=== PATIENT | female | born 1975 | race Caucasian/White ===

== ENCOUNTER 2020-07-15 08:33 | Emergency (ER) | payer OTHER ==
--- NOTE | 2020-07-15 09:03 | ED ---
Female Urogenital HPI - General Chief complaint: Vaginal Bleeding Stated complaint: Bleeding Time Seen by Provider: 07/15/20 08:40 Source: patient, RN notes reviewed Mode of arrival: ambulatory Limitations: no limitations - History of Present Illness Initial comments: 45-year-old female presents emergency Department chief complaint of heavy vaginal bleeding. Patient states that has worsened last 3 days. Patient states her last several periods have been heavier with some clotting states that she had large clots last few nights she denies feeling lightheaded, shortness breath, dizziness, fatigue. She has meant that she's had anemia in the past in which she took iron supplements for. Patient states she has no abdominal pain cramping back pain or any flank pain at this time. - Related Data Home Medications Medication Instructions Recorded Confirmed Ibuprofen [Motrin Ib] 400 mg PO Q8H PRN 07/15/20 07/15/20 Phenytoin Sodium Extended 100 mg PO HS 07/15/20 07/15/20 [Dilantin] Phenytoin Sodium Extended 200 mg PO DAILY 07/15/20 07/15/20 [Dilantin] Allergies Allergy/AdvReac Type Severity Reaction Status Date / Time No Known Allergies Allergy Verified 07/15/20 09:20 Review of Systems ROS Statement: Those systems with pertinent positive or pertinent negative responses have been documented in the HPI. ROS Other: All systems not noted in ROS Statement are negative. Past Medical History Past Medical History: Seizure Disorder History of Any Multi-Drug Resistant Organisms: None Reported Past Surgical History: Orthopedic Surgery Additional Past Surgical History / Comment(s): Right foot sx Past Psychological History: No Psychological Hx Reported Smoking Status: Never smoker Past Alcohol Use History: None Reported Past Drug Use History: None Reported General Exam Limitations: no limitations General appearance: alert, in no apparent distress, other (Vitals reviewed, within normal limits.) Head exam: Present: atraumatic, normocephalic, normal inspection Eye exam: Present: normal appearance, PERRL, EOMI. Absent: scleral icterus, conjunctival injection, periorbital swelling ENT exam: Present: normal exam, normal oropharynx, mucous membranes moist Neck exam: Present: normal inspection, full ROM. Absent: tenderness, meningismus, lymphadenopathy Respiratory exam: Present: normal lung sounds bilaterally. Absent: respiratory distress, wheezes, rales, rhonchi, stridor Cardiovascular Exam: Present: regular rate, normal rhythm, normal heart sounds. Absent: systolic murmur, diastolic murmur, rubs, gallop, clicks GI/Abdominal exam: Present: soft, normal bowel sounds. Absent: distended, tenderness, guarding, rebound, rigid Back exam: Absent: CVA tenderness (R), CVA tenderness (L) Neurological exam: Present: alert, oriented X3 Skin exam: Present: warm, dry, intact, normal color. Absent: rash Course Vital Signs 07/15/20 08:35 Temperature 98.4 F Pulse Rate 93 Respiratory 18 Rate Blood Pressure 128/81 O2 Sat by Pulse 100 Oximetry Medical Decision Making - Medical Decision Making Patient presented for dysfunctional uterine bleeding. Patient's labwork is unremarkable. Ultrasound that shows bulky uterus with fibroids. This most likely causing her dysfunctional uterine bleeding, menorrhagia. Patient will follow-up with [employer] return - Lab Data Result diagrams: 07/15/20 09:10 07/15/20 09:10 Lab Results 07/15/20 07/15/20 07/15/20 Range/Units 09:10 09:10 09:10 WBC 6.4 (3.8-10.6) k/uL RBC 4.21 (3.80-5.40) m/uL Hgb 13.4 (11.4-16.0) gm/dL Hct 38.9 (34.0-46.0) % MCV 92.4 (80.0-100.0) fL MCH 31.8 (25.0-35.0) pg MCHC 34.4 (31.0-37.0) g/dL RDW 13.6 (11.5-15.5) % Plt Count 201 (150-450) k/uL MPV 6.7 Neutrophils % 79 % Lymphocytes % 10 % Monocytes % 6 % Eosinophils % 5 % Basophils % 0 % Neutrophils # 5.0 (1.3-7.7) k/uL Lymphocytes # 0.6 L (1.0-4.8) k/uL Monocytes # 0.4 (0-1.0) k/uL Eosinophils # 0.3 (0-0.7) k/uL Basophils # 0.0 (0-0.2) k/uL Sodium (137-145) mmol/L Potassium (3.5-5.1) mmol/L Chloride (98-107) mmol/L Carbon Dioxide (22-30) mmol/L Anion Gap mmol/L BUN (7-17) mg/dL Creatinine (0.52-1.04) mg/dL Est GFR (CKD-EPI)AfAm (>60 ml/min/1.73 sqM) Est GFR (CKD-EPI)NonAf (>60 ml/min/1.73 sqM) Glucose (74-99) mg/dL Calcium (8.4-10.2) mg/dL Total Bilirubin (0.2-1.3) mg/dL AST (14-36) U/L ALT (4-34) U/L Alkaline Phosphatase (38-126) U/L Total Protein (6.3-8.2) g/dL Albumin (3.5-5.0) g/dL Urine Color Yellow Urine Appearance Clear (Clear) Urine pH 6.0 (5.0-8.0) Ur Specific [place] 1.005 (1.001-1.035) Urine Protein 1+ H (Negative) Urine Glucose (UA) Negative (Negative) Urine Ketones Negative (Negative) Urine Blood Large H (Negative) Urine Nitrite Negative (Negative) Urine Bilirubin Negative (Negative) Urine Urobilinogen <2.0 (<2.0) mg/dL Ur Leukocyte Esterase Trace H (Negative) Urine RBC >182 H (0-5) /hpf Urine WBC 6 H (0-5) /hpf Ur Squamous Epith Cells <1 (0-4) /hpf Urine Bacteria Rare H (None) /hpf Urine HCG, Qual Not Detected (Not Detectd) 07/15/20 Range/Units 09:10 WBC (3.8-10.6) k/uL RBC (3.80-5.40) m/uL Hgb (11.4-16.0) gm/dL Hct (34.0-46.0) % MCV (80.0-100.0) fL MCH (25.0-35.0) pg MCHC (31.0-37.0) g/dL RDW (11.5-15.5) % Plt Count (150-450) k/uL MPV Neutrophils % % Lymphocytes % % Monocytes % % Eosinophils % % Basophils % % Neutrophils # (1.3-7.7) k/uL Lymphocytes # (1.0-4.8) k/uL Monocytes # (0-1.0) k/uL Eosinophils # (0-0.7) k/uL Basophils # (0-0.2) k/uL Sodium 141 (137-145) mmol/L Potassium 4.7 (3.5-5.1) mmol/L Chloride 107 (98-107) mmol/L Carbon Dioxide 29 (22-30) mmol/L Anion Gap 5 mmol/L BUN 11 (7-17) mg/dL Creatinine 0.61 (0.52-1.04) mg/dL Est GFR (CKD-EPI)AfAm >90 (>60 ml/min/1.73 sqM) Est GFR (CKD-EPI)NonAf >90 (>60 ml/min/1.73 sqM) Glucose 108 H (74-99) mg/dL Calcium 9.2 (8.4-10.2) mg/dL Total Bilirubin 0.4 (0.2-1.3) mg/dL AST 20 (14-36) U/L ALT 12 (4-34) U/L Alkaline Phosphatase 132 H (38-126) U/L Total Protein 7.2 (6.3-8.2) g/dL Albumin 4.1 (3.5-5.0) g/dL Urine Color Urine Appearance (Clear) Urine pH (5.0-8.0) Ur Specific [place] (1.001-1.035) Urine Protein (Negative) Urine Glucose (UA) (Negative) Urine Ketones (Negative) Urine Blood (Negative) Urine Nitrite (Negative) Urine Bilirubin (Negative) Urine Urobilinogen (<2.0) mg/dL Ur Leukocyte Esterase (Negative) Urine RBC (0-5) /hpf Urine WBC (0-5) /hpf Ur Squamous Epith Cells (0-4) /hpf Urine Bacteria (None) /hpf Urine HCG, Qual (Not Detectd) Disposition Clinical Impression: Dysfunctional uterine bleeding, Menorrhagia, Uterine fibroid Disposition: HOME SELF-CARE Condition: Stable Instructions (If sedation given, give patient instructions): Dysfunctional Uterine Bleeding (ED) Additional Instructions: Please return to the Emergency Department if symptoms worsen or any other concerns. Is patient prescribed a controlled substance at d/c from ED?: No Referrals: Haseeb Gomes MD [Primary Care Provider] - 1-2 days Haris Morales DO [Doctor of Osteopathic Medicine] - 1-2 days Time of Disposition: 10:18
[2020-07-15 09:25] LABS: Basophils % (A) 0 %; Eosinophils # (A) 0.3 k/uL (0-0.7); Eosinophils % (A) 5 %; HCT 38.9 % (34.0-46.0); HGB 13.4 gm/dL (11.4-16.0); Lymphocytes # (A) 0.6 k/uL (1.0-4.8); Lymphocytes % (A) 10 %; MCH 31.8 pg (25.0-35.0); MCHC 34.4 g/dL (31.0-37.0); MCV 92.4 fL (80.0-100.0); Mean Platelet Volume 6.7; Monocytes # (A) 0.4 k/uL (0-1.0); Monocytes % (A) 6 %; Neutrophils % (A) 79 %; Platelet Count 201 k/uL (150-450); RBC 4.21 m/uL (3.80-5.40); RDW 13.6 % (11.5-15.5); WBC 6.4 k/uL (3.8-10.6)
[2020-07-15 09:40] LABS: ALT 12 U/L (4-34); AST 20 U/L (14-36); African American GFR (CKD) >90 (>60 ml/min/1.73 sqM); Albumin 4.1 g/dL (3.5-5.0); Alkaline Phosphatase 132 U/L (38-126); Anion Gap 5 mmol/L; Blood Urea Nitrogen 11 mg/dL (7-17); Calcium 9.2 mg/dL (8.4-10.2); Carbon Dioxide 29 mmol/L (22-30); Chloride 107 mmol/L (98-107); Glucose 108 mg/dL (74-99); Non-African American GFR(CKD) >90 (>60 ml/min/1.73 sqM); Potassium 4.7 mmol/L (3.5-5.1); Sodium 141 mmol/L (137-145); Total Bilirubin 0.4 mg/dL (0.2-1.3); Total Protein 7.2 g/dL (6.3-8.2)
[2020-07-15 09:52] LABS: Appearance,Urine Clear (Clear); Bacteria,Urine Rare /hpf; Bilirubin,Urine Negative (Negative); Blood,Urine Large (Negative); Color,Urine Yellow; Glucose,Urine (UA) Negative (Negative); Ketones,Urine Negative (Negative); Leukocyte Esterase,Urine Trace (Negative); Nitrite,Urine Negative (Negative); Protein,Urine 1+ (Negative); RBC,Urine >182 /hpf (0-5); Specific Gravity,Urine 1.005 (1.001-1.035); Squamous Epithelial Cell,Urine <1 /hpf (0-4); Urobilinogen,Urine <2.0 mg/dL (<2.0); WBC,Urine 6 /hpf (0-5)
--- NOTE | 2020-07-15 10:10 | US ---
EXAMINATION TYPE: US transvaginal plus Doppler DATE OF EXAM: 07/15/2020 COMPARISON: NONE CLINICAL HISTORY: 45-year-old female heavy bleeding, spotting between cycles for 1 year. TECHNIQUE: Transvaginal (TV). Color Doppler and spectral waveform analysis of the ovarian arteries and veins. Date of LMP: unknown FINDINGS: EXAM MEASUREMENTS: Uterus: 13.7 x 5.9 x 6.7 cm Endometrial Stripe: 2.2 cm Right Ovary: 2.6 x 2.0 x 1.6 cm Left Ovary: 4.4 x 2.9 x 2.4 cm for a volume of 15.3 mL 1. Uterus: Retroverted , bulky at 13.7 cm, fibroid left fundal measures 1.6 x 2.9 x 2.0 cm. Cervical nabothian cyst measuring up to 1.0 cm. 2. Endometrium: thickened and irregular 3. Right Ovary: wnl 4. Left Ovary: There is prominent follicular change with a dominant follicle/functional cyst measuri ng 2.4 x 2.3 x 2.5 cm. Spectral, color and waveform doppler imaging shows good arterial and venous flow within the ovaries ; there is no evidence for ovarian torsion. 5. Bilateral Adnexa: wnl 6. Posterior cul-de-sac: no free fluid IMPRESSION: 1. Excessively thickened and heterogeneous endometrial stripe measuring up to 2.2 cm. Endometrial hyp erplasia, polyps, and endometrial carcinoma are in the differential. 2. Prominent follicular change in the left ovary with a 2.5 cm dominant follicle/functional cyst. 3. No sonographic evidence for ovarian torsion. 4. A 2.9 cm left fundal intramural fibroid.
[2020-07-15 10:41] VITALS: BP 120/82; PULSE 85; RESP 16; TEMP 97.6
== END 2020-07-15 10:41 | disposition home or self-care (01) ==
LOC: EC 08:33
DX: D25.1 Intramural leiomyoma of uterus (principal); G40.909 Epilepsy, unspecified, not intractable, without status epilepticus; Z79.899 Other long term (current) drug therapy
CPT/HCPCS: 36415; 76830; 80053; 81001; 81025; 85025; 93975; 99284

== ENCOUNTER 2020-07-22 10:52 | Day surgery (SDC) | payer OTHER ==
[~2020-07-22 10:52] MED LIST: Pre Op ABX Message 1 EACH MISC MISCELLANE ONE
[2020-07-22 11:18] VITALS: RESP 16
[2020-07-22] MEDS ORDERED: LACTATED RINGERS 1,000 ML IV ONE (11:38)
[2020-07-22] MEDS ORDERED: ONDANSETRON 4 MG/2 ML VIAL ONE (11:40)
[2020-07-22] MEDS ORDERED: ONDANSETRON 4 MG/2 ML VIAL IVP ONE (11:41)
[2020-07-22] MEDS ORDERED: fentaNYL (PF) 50 MCG/ML 2 ML AMP ONE (12:51)
[2020-07-22] MEDS ORDERED: MIDAZOLAM 2 MG/2 ML VIAL ONE (12:51)
[2020-07-22] MEDS ORDERED: PROPOFOL 10 MG/ML 20 ML VIAL IV ONE (12:51)
--- NOTE | 2020-07-22 13:26 | P.OP ---
Date of Procedure: 07/22/20 Preoperative Diagnosis: Menorrhagia with symptomatic anemia, thickened endometrium Postoperative Diagnosis: Same Procedure(s) Performed: D&C with hysteroscopy Anesthesia: CECILY Surgeon: Haris Morales Estimated Blood Loss (ml): 8 Pathology: other (Uterine curettings) Condition: stable Disposition: same day Operative Findings: Pelvic exam reveals grossly enlarged uterus slightly tipped to the right side no other abnormal lesions are noted initially Description of Procedure: Patient states the operating suite where general anesthetic was found be adequate. She was prepped and draped in the normal sterile fashion and placed in dorsal lithotomy position. Initially a weighted speculum was inserted into the vagina and the anterior lip of the cervix was identified and grasped with an Allis clamp. Cervix was then dilated. Camera was inserted with significant tissue noted questionable degenerating polyp or fibroid but limited visualization could be seen with the hysteroscope. Camera was then removed and sharp curettings of the endometrial retained. Significant quantity of endometrial tissue was removed and sent to pathology for evaluation until pathologies returned is unclear what the next treatment step will be. Once completed all instruments were removed. Sponge, lap, needle counts were all correct 2. Patient was then taken to the recovery room in stable and satisfactory condition. Plan - Discharge Summary New Discharge Prescriptions: New Ibuprofen [Motrin] 600 mg PO Q6HR PRN #30 tab PRN Reason: Pain No Action Phenytoin Sodium Extended [Dilantin] 200 mg PO DAILY Phenytoin Sodium Extended [Dilantin] 100 mg PO HS Ibuprofen [Motrin Ib] 400 mg PO Q8H PRN PRN Reason: Pain Aspirin 81 mg PO DAILY Discharge Medication List Ibuprofen [Motrin Ib] 400 mg PO Q8H PRN 07/15/20 [History] Phenytoin Sodium Extended [Dilantin] 100 mg PO HS 07/15/20 [History] Phenytoin Sodium Extended [Dilantin] 200 mg PO DAILY 07/15/20 [History] Aspirin 81 mg PO DAILY 07/22/20 [History] Ibuprofen [Motrin] 600 mg PO Q6HR PRN #30 tab 07/22/20 [Rx] Follow up Appointment(s)/Referral(s): Haris Morales DO [Doctor of Osteopathic Medicine] - 07/26/20 Activity/Diet/Wound Care/Special Instructions: Limit driving. Pelvic rest. Call for heavy bleeding severe pain or high temperatures
[2020-07-22 13:36] VITALS: TEMP 97.2
[2020-07-22] MEDS ORDERED: SODIUM CHLORIDE 0.9% 1,000 ML IV ONE ×2 (13:53)
[2020-07-22 14:15] VITALS: BP 114/74; PULSE 94
[2020-07-22 14:23] LABS: Anisocytosis Slight; Basophils % (A) 0 %; Eosinophils # (A) 0.2 k/uL (0-0.7); Eosinophils % (A) 4 %; HCT 21.3 % (34.0-46.0); Hypochromasia Moderate; Lymphocytes % (A) 21 %; MCH 32.7 pg (25.0-35.0); MCHC 33.2 g/dL (31.0-37.0); Macrocytosis Slight; Mean Platelet Volume 6.7; Monocytes # (A) 0.3 k/uL (0-1.0); Monocytes % (A) 6 %; Neutrophils # (A) 3.1 k/uL (1.3-7.7); Neutrophils % (A) 68 %; Platelet Count 229 k/uL (150-450); Poikilocytosis Slight; RBC 2.16 m/uL (3.80-5.40); RDW 16.2 % (11.5-15.5); WBC 4.6 k/uL (3.8-10.6)
[2020-07-22 14:27] LABS: HGB 7.1 gm/dL (11.4-16.0); MCV 98.6 fL (80.0-100.0)
--- NOTE | 2020-07-22 18:28 | PN ---
PROGRESS NOTE The patient is seen and evaluated this afternoon following D and C. She was seen in the recovery room. She was alert and oriented x3 and understood all questions and issues that were brought forth. I did relate that her hemoglobin was consistent with our office hemoglobin and was somewhere between 6 and 7. I offered blood products and related that she would probably feel better if she got them. She declined. She has had blood in the past and did not like it. She relates that in the past her hemoglobin has been as low as 5 and she did not receive blood products at that time. She is advised to take iron. She is aware she needs to report to the emergency room for any heavy bleeding this weekend due to the fact that her hemoglobin is already very low. She understands and agrees to same. She will follow up with me in the next few days for pathology review and discussion of future treatment options. All other questions were answered for her at this time. Again, she declines blood products at this time. MMODL / IJN: [id number] /
[2020-07-23 02:21] LABS: Follicle Stimulating Hormone 12.6 mIU/mL; Luteinizing Hormone 9.9 mIU/mL
[2020-07-23 02:22] LABS: Estradiol 261.7 pg/mL
== END 2020-07-22 15:03 | disposition home or self-care (01) ==
LOC: OR 10:52
PROVIDERS: ATTEND Obstetrics & Gynecology
DX: C54.1 Malignant neoplasm of endometrium (principal); N92.0 Excessive and frequent menstruation with regular cycle; D64.9 Anemia, unspecified; R56.9 Unspecified convulsions; Z98.890 Other specified postprocedural states; Z80.0 Family history of malignant neoplasm of digestive organs; Z80.49 Family history of malignant neoplasm of other genital organs
CPT/HCPCS: 81025; 86900; 86901; 88305; 84443; 83001; 83002; 82670; 85025; 86850; 58558; J2250; J2405; J3010; J2704

== ENCOUNTER → 2020-07-29 | Outpatient (CLI) | payer OTHER ==
--- NOTE | 2020-07-30 04:19 | CT ---
EXAMINATION TYPE: CT abdomen pelvis wo con DATE OF EXAM: 07/29/2020 COMPARISON: HISTORY: Endometrial adenocarcinoma. Pt recently had DNC procedure. Oral contrast only. No IV contras t due to multiple attemps by CT staff to obtain IV. BOBBIN DUMPER also called down to attempt IV and was unsuc cessful. Dr. Martinez, diabetes solutions specialist for Dr. Morales, asked we consult radiologist. Dr. Foote advised if pat ient scheduled for PET scan, to not proceed on a without study. If patient not scheduled, to proceed. Pt not scheduled for PET scan at this time; Dr. Martinez said to proceed. CT DLP: 267.20 mGycm Automated exposure control for dose reduction was used. Images were obtained from the diaphragm to the floor the pelvis with oral contrast only. The lung bases are clear of consolidation. There is no pleural effusion. Heart size is normal. There is no pericardial effusion. Liver spleen pancreas appear normal. Bile ducts are not dilated. There is no adrenal mass. Kidneys have normal size. There is no hydronephrosis. Ureters are not dilat ed. There is no sign of retroperitoneal adenopathy. Bladder distends smoothly. There is no inguinal h ernia. There is no free fluid in the pelvis. Uterus is retroverted. There is no evidence of a pelvic mass. The lumbar vertebra have normal spacing and alignment. Posterior elements are intact. Bony pelvis is intact. Hip joints appear normal. There is no evidence of hip dysplasia. There is no mesenteric edema. There is no ascites or free air. There is no bowel obstruction. Appendi x is filled with contrast and appears normal. IMPRESSION: Negative CT scan of the abdomen and pelvis. Normal appendix. No evidence of metastatic disease in thi s patient with a history of uterine cancer.
--- NOTE | 2020-07-30 10:36 | XR ---
EXAMINATION TYPE: XR chest 2V DATE OF EXAM: 07/29/2020 COMPARISON: NONE HISTORY: C 54.1 TECHNIQUE: Frontal and lateral views of the chest are obtained. FINDINGS: There is no focal air space opacity, pleural effusion, or pneumothorax seen. The cardiac silhouette size is within normal limits. The osseous structures are intact. IMPRESSION: No acute cardiopulmonary process.
== END | disposition home or self-care (01) ==
LOC: RADCTMAIN 16:01
PROVIDERS: ATTEND Obstetrics & Gynecology
DX: C54.1 Malignant neoplasm of endometrium (principal)
CPT/HCPCS: 71046; 74176

== ENCOUNTER 2021-04-06 08:38 | Day surgery (SDC) | payer OTHER ==
[2021-04-03 15:30] VITALS: BMI 20.2
[~2021-04-06 08:38] MED LIST changes: +LACTATED RINGERS 1,000 ML IV SCH; -Pre Op ABX Message 1 EACH MISC MISCELLANE ONE
[2021-04-06] MEDS ORDERED: LIDOCAINE 1% (10MG/ML) FOR IV START INTRADERMA ONE (09:14)
[2021-04-06] MEDS ORDERED: LIDOCAINE 1% INJ 10MG/ML (20 ML MDV) ONE (10:14)
[2021-04-06] MEDS ORDERED: PROPOFOL 10 MG/ML 20 ML VIAL IV ONE (10:14)
--- NOTE | 2021-04-06 10:17 | P.GSHP ---
History of Present Illness H&P Date: 04/06/21 Chief Complaint: GERD, screening colonoscopy This a 46-year-old female presents today for EGD and screening colonoscopy. Patient presents history of endometrial cancer. She's had some mild GERD symptoms. Past Medical History Past Medical History: Seizure Disorder Additional Past Medical History / Comment(s): LAST SEIZURE 20 YEARS AGO. History of Any Multi-Drug Resistant Organisms: None Reported Past Surgical History: Hysterectomy, Orthopedic Surgery Additional Past Surgical History / Comment(s): Right foot sx Past Anesthesia/Blood Transfusion Reactions: No Reported Reaction Smoking Status: Never smoker - Past Family History Mother Family Medical History: Cancer Medications and Allergies Home Medications Medication Instructions Recorded Confirmed Type Ibuprofen [Motrin Ib] 400 mg PO QAM PRN 07/15/20 04/03/21 History Phenytoin Sodium Extended 100 mg PO HS 07/15/20 04/06/21 History [Dilantin] Phenytoin Sodium Extended 200 mg PO DAILY 07/15/20 04/06/21 History [Dilantin] Ibuprofen 600 mg PO HS PRN 04/03/21 04/03/21 History Allergies Allergy/AdvReac Type Severity Reaction Status Date / Time No Known Allergies Allergy Verified 04/03/21 15:21 Surgical - Exam - General well developed, well nourished, no distress - Eyes PERRL - ENT normal pinna - Neck no masses - Respiratory normal expansion - Cardiovascular Rhythm: regular - Abdomen Abdomen: soft, non tender Assessment and Plan Assessment: GERD. We'll perform EGD. We'll also perform screening colonoscopy.
--- NOTE | 2021-04-06 10:36 | P.OP ---
Date of Procedure: 04/06/21 Preoperative Diagnosis: GERD Screening colonoscopy Postoperative Diagnosis: Mild antral gastritis Mild diverticulosis Procedure(s) Performed: EGD Colonoscopy Anesthesia: MAC Surgeon: Reagan Flores Pathology: other (Antrum) Condition: stable Disposition: PACU Description of Procedure: The patient's placed on the endoscopy table in the lateral position. She received IV sedation. Digital rectal exam performed which revealed no abnormalities. Flexible colonoscope was then placed patient anus passed throughout the entire colon. The ileocecal valve was visualized. The cecum, ascending and transverse colon appeared normal. The descending and sigmoid colon appeared to have mild diverticular changes. Scope was then brought back the rectum and this appeared normal. Scope was withdrawn for patient. Next the gastroscope placed oropharynx passed in the esophagus into the stomach. Scope some placed through the pylorus. The first and second portion of duodenum appeared normal. Scope was then brought back the antrum this. Mildly inflamed. A biopsies performed. Scope was then retroflexed and the remainder of the stomach appeared normal. The GE junction was at 40 cm. The distal esophagus appeared normal. The proximal esophagus appeared normal. Scope was withdrawn for patient.
[2021-04-06 10:37] VITALS: RESP 16
[2021-04-06] MEDS ORDERED: LABETALOL 5 MG/ML VIAL MDV IVP ONE ×3 (11:20→11:51)
[2021-04-06 12:06] VITALS: BP 138/90; PULSE 80
== END 2021-04-06 12:14 | disposition home or self-care (01) ==
LOC: ORWHC2ENDO 08:38
PROVIDERS: ATTEND Surgery
DX: Z12.11 Encounter for screening for malignant neoplasm of colon (principal); K57.30 Diverticulosis of large intestine without perforation or abscess without bleeding; K29.50 Unspecified chronic gastritis without bleeding; G40.909 Epilepsy, unspecified, not intractable, without status epilepticus; Z85.42 Personal history of malignant neoplasm of other parts of uterus; Z79.899 Other long term (current) drug therapy
CPT/HCPCS: 88305; 43239; J2001; J2704; G0121; 45378

== ENCOUNTER 2022-05-17 09:38 | Day surgery (SDC) | payer OTHER ==
[2022-05-16 10:35] VITALS: BMI 19.4
[2022-05-17] MEDS ORDERED: LACTATED RINGERS 1,000 ML IV ONE (10:24)
[2022-05-17 10:43] VITALS: TEMP 97.1
[2022-05-17] MEDS ORDERED: PROPOFOL 10 MG/ML 20 ML VIAL IV ONE (11:06)
--- NOTE | 2022-05-17 11:08 | P.GSHP ---
History of Present Illness H&P Date: 05/17/22 Chief Complaint: Screening colonoscopy, history of endometrial cancer Is a 39-year-old female presents today for colonoscopy. Patient appears history of endometrial cancer. She's had of diverticulosis her last colonoscopy Past Medical History Past Medical History: Cancer, Seizure Disorder Additional Past Medical History / Comment(s): LAST SEIZURE 20 YEARS AGO. UTERINE CANCER History of Any Multi-Drug Resistant Organisms: None Reported Past Surgical History: Hysterectomy, Orthopedic Surgery Additional Past Surgical History / Comment(s): Right foot sx Past Anesthesia/Blood Transfusion Reactions: No Reported Reaction Smoking Status: Never smoker - Past Family History Mother Family Medical History: Cancer Medications and Allergies Home Medications Medication Instructions Recorded Confirmed Type Ibuprofen [Motrin Ib] 400 mg PO QAM PRN 07/15/20 05/16/22 History Phenytoin Sodium Extended 100 mg PO HS 07/15/20 05/16/22 History [Dilantin] Phenytoin Sodium Extended 200 mg PO DAILY 07/15/20 05/16/22 History [Dilantin] Ibuprofen 600 mg PO HS PRN 04/03/21 05/16/22 History Allergies Allergy/AdvReac Type Severity Reaction Status Date / Time Penicillins Allergy Rash/Hives Verified 05/17/22 10:49 Surgical - Exam Vital Signs Temp Pulse Resp BP Pulse Ox 97.1 F L 78 18 134/91 94 L 05/17/22 10:27 05/17/22 10:27 05/17/22 10:27 05/17/22 10:27 05/17/22 10:27 - General well developed, well nourished, no distress - Eyes PERRL - ENT normal pinna - Neck no masses - Respiratory normal expansion - Cardiovascular Rhythm: regular - Abdomen Abdomen: soft, non tender Assessment and Plan Assessment: History of diverticulosis History of initial cancer. We'll perform colonoscopy
--- NOTE | 2022-05-17 11:22 | P.OP ---
Date of Procedure: 05/17/22 Preoperative Diagnosis: History of endometrial cancer Postoperative Diagnosis: Tortuous colon Procedure(s) Performed: Colonoscopy Anesthesia: MAC Surgeon: Reagan Flores Pathology: none sent Condition: stable Disposition: PACU Description of Procedure: The patient's placed on the endoscopy table in the lateral position. She received IV sedation. Digital rectal exam was performed which revealed no abnormalities. The flexible colonoscope was then placed patient anus and passed throughout the entire colon. The colon was very tortuous. The pediatric scope was used to do the colonoscopy. The ileocecal valve sutures. The cecum, ascending transverse and descending colon appeared normal. The sigmoid colon appeared normal. The colon was very tortuous or. Scope was withdrawn for patient.
[2022-05-17 11:40] VITALS: BP 148/98; PULSE 84; RESP 15
== END 2022-05-17 12:20 | disposition home or self-care (01) ==
LOC: ORWHC2ENDO 09:38
PROVIDERS: ATTEND Surgery
DX: C54.1 Malignant neoplasm of endometrium (principal); G40.909 Epilepsy, unspecified, not intractable, without status epilepticus; Z85.42 Personal history of malignant neoplasm of other parts of uterus; Z90.710 Acquired absence of both cervix and uterus; Z79.1 Long term (current) use of non-steroidal anti-inflammatories (NSAID); Z79.899 Other long term (current) drug therapy; Z88.0 Allergy status to penicillin
CPT/HCPCS: 45378; J2704

== ENCOUNTER 2023-04-18 09:18 | Day surgery (SDC) | payer OTHER ==
[2023-04-16 10:01] VITALS: BMI 19.5
[~2023-04-18 09:18] MED LIST changes: +LIDOCAINE 1% (10MG/ML) FOR IV START INTRADERMA PRN
[2023-04-18] MEDS ORDERED: LACTATED RINGERS 1,000 ML IV ONE (10:29)
[2023-04-18 10:36] VITALS: TEMP 97
[2023-04-18] MEDS ORDERED: PROPOFOL 10 MG/ML 20 ML VIAL IV ONE (11:08)
--- NOTE | 2023-04-18 11:38 | P.OP ---
Date of Procedure: 04/18/23 Preoperative Diagnosis: Screening colonoscopy Postoperative Diagnosis: Normal colon Procedure(s) Performed: Colonoscopy Anesthesia: MAC Surgeon: Reagan Flores Pathology: none sent Condition: stable Disposition: PACU Description of Procedure: The patient's placed on the endoscopy table in the lateral position. She received IV sedation. Digital rectal performed. This revealed no abnormalities. Flexible colonoscope was then placed patient anus and passed throughout the entire colon. The ileocecal valve was visualized. The cecum, ascending and transverse colon appeared normal. Descending and sigmoid colon appeared normal. Copious then brought back the rectum and this was normal. Scope was withdrawn from patient.
--- NOTE | 2023-04-18 11:39 | P.GSHP ---
History of Present Illness H&P Date: 04/18/23 Chief Complaint: Screening colonoscopy This a 48-year-old female presents today for screening colonoscopy. Patient denies a significant GI complaints. Past Medical History Past Medical History: Cancer, Rheumatoid Arthritis (RA), Seizure Disorder Additional Past Medical History / Comment(s): LAST SEIZURE 25 YEARS AGO. UTERINE CANCER History of Any Multi-Drug Resistant Organisms: None Reported Past Surgical History: Hysterectomy, Orthopedic Surgery Additional Past Surgical History / Comment(s): Right foot sx,oopharectomy Past Anesthesia/Blood Transfusion Reactions: No Reported Reaction Additional Past Anesthesia/Blood Transfusion Reaction / Comment(s): no blood transfusion Smoking Status: Never smoker - Past Family History Mother Family Medical History: Cancer Additional Family Medical History / Comment(s): cervical colon Medications and Allergies Home Medications Medication Instructions Recorded Confirmed Type Phenytoin Sodium Extended 100 mg PO HS 07/15/20 04/16/23 History [Dilantin] Phenytoin Sodium Extended 200 mg PO DAILY 07/15/20 04/16/23 History [Dilantin] Ibuprofen 400 mg PO HS PRN 04/03/21 04/16/23 History Aspirin 650 mg PO DAILY 04/16/23 04/16/23 History Allergies Allergy/AdvReac Type Severity Reaction Status Date / Time Penicillins Allergy Rash/Hives Verified 05/17/22 10:49 Surgical - Exam Vital Signs Temp Pulse Resp BP Pulse Ox 97.0 F L 78 18 77/43 97 04/18/23 10:28 04/18/23 10:28 04/18/23 10:28 04/18/23 10:28 04/18/23 10:28 - General well developed, well nourished, no distress - Eyes PERRL - ENT normal pinna - Neck no masses - Respiratory normal expansion - Cardiovascular Rhythm: regular - Abdomen Abdomen: soft, non tender Assessment and Plan Assessment: We'll perform screening colonoscopy.
[2023-04-18 11:59] VITALS: PULSE 87; RESP 16
[2023-04-18 12:00] VITALS: BP 136/82
== END 2023-04-18 12:13 | disposition home or self-care (01) ==
LOC: ORWHC2ENDO 09:18
PROVIDERS: ATTEND Surgery
DX: Z12.11 Encounter for screening for malignant neoplasm of colon (principal); G40.909 Epilepsy, unspecified, not intractable, without status epilepticus; M06.9 Rheumatoid arthritis, unspecified; Z85.42 Personal history of malignant neoplasm of other parts of uterus; Z88.0 Allergy status to penicillin; Z79.82 Long term (current) use of aspirin; Z79.899 Other long term (current) drug therapy
CPT/HCPCS: 45378; J2704

== ENCOUNTER 2024-04-20 13:14 | Day surgery (SDC) | payer OTHER ==
[2024-04-20 14:46] VITALS: TEMP 98.7
[2024-04-20] MEDS: LACTATED RINGERS 1,000 ML IV SCH (15:04)
[2024-04-20] MEDS: IV FLUID CONTINUATION 1,000 ML IV ONE (15:05)
[2024-04-20] MEDS ORDERED: PROPOFOL 10 MG/ML 20 ML VIAL IV ONE (15:38)
--- NOTE | 2024-04-20 15:43 | P.GSHP ---
History of Present Illness H&P Date: 04/20/24 Chief Complaint: Screening colonoscopy, family history colon cancer This is a 49-year-old female presenting for screening colonoscopy. Patient has a family history of colon cancer. Past Medical History Past Medical History: Cancer, Rheumatoid Arthritis (RA), Seizure Disorder Additional Past Medical History / Comment(s): LAST SEIZURE 25 YEARS AGO. UTERINE CANCER History of Any Multi-Drug Resistant Organisms: None Reported Past Surgical History: Hysterectomy, Orthopedic Surgery Additional Past Surgical History / Comment(s): Right foot sx,oopharectomy Past Anesthesia/Blood Transfusion Reactions: No Reported Reaction Additional Past Anesthesia/Blood Transfusion Reaction / Comment(s): no blood transfusion Smoking Status: Never smoker - Past Family History Mother Family Medical History: Cancer Additional Family Medical History / Comment(s): cervical colon Medications and Allergies Home Medications Medication Instructions Recorded Confirmed Type Phenytoin Sodium Extended 100 mg PO HS 07/15/20 04/20/24 History [Dilantin] Phenytoin Sodium Extended 200 mg PO DAILY 07/15/20 04/20/24 History [Dilantin] Ibuprofen 400 mg PO HS PRN 04/03/21 04/20/24 History Allergies Allergy/AdvReac Type Severity Reaction Status Date / Time Penicillins Allergy Rash/Hives Verified 04/20/24 14:36 Surgical - Exam Vital Signs Temp Pulse Resp BP Pulse Ox 98.7 F 95 20 151/85 98 04/20/24 14:44 04/20/24 14:44 04/20/24 14:44 04/20/24 14:44 04/20/24 14:44 - General no distress - Eyes PERRL - ENT normal pinna - Neck no masses - Respiratory normal expansion - Cardiovascular Rhythm: regular - Abdomen Abdomen: soft, non tender Assessment and Plan Assessment: Family history colon cancer, will perform screening colonoscopy.
[2024-04-20 16:23] VITALS: BP 131/86; PULSE 94; RESP 18
--- NOTE | 2024-04-24 09:55 | P.OP ---
Date of Procedure: 04/20/24 Preoperative Diagnosis: Epigastric pain Screening colonoscopy Postoperative Diagnosis: Antral gastritis Normal colon Procedure(s) Performed: EGD Colonoscopy Anesthesia: MAC Surgeon: Reagan Flores Pathology: other (Antrum) Condition: stable Disposition: PACU Description of Procedure: The patient is placed on the endoscopy table lateral position. She received IV sedation. The gastric was placed oropharynx passed in the esophagus and stomach. Scope placed in the pylorus. The first second portion of the duodenum appeared normal. Scope was never back to the antrum this was mildly Flaim. A biopsy was performed. Scope was retroflexed Liza stomach appeared normal. The GE junction was at 40 cm the distal esophagus appeared normal. The proximal esophagus appeared normal. Scope withdrawn the patient. Next digital rectal exams performed. This revealed no abnormality. Flex colonoscope was then placed patient anus passed throughout the entire colon. The ileocecal valve was visualized. The cecum, ascending and transverse colon appeared normal. The descending and sigmoid colon appeared normal. The scope withdrawn for the patient.
== END 2024-04-20 16:45 | disposition home or self-care (01) ==
LOC: ORWHC2ENDO 13:14
PROVIDERS: ATTEND Surgery
CPT/HCPCS: 43239; 45378; 88305

== ENCOUNTER → 2024-06-23 | Outpatient (CLI) | payer OTHER ==
--- NOTE | 2024-06-26 16:16 | MM ---
Reason for Exam: Screening (asymptomatic). Last mammogram was performed 1 year(s) and 1 month(s) ago. Patient History: Menarche at age 14. First Full-Term at age 23. Left ovary removed at age 46. Right ovary removed at age 46. Hysterectomy at age 46. Postmenopausal. Endometrial cancer under age 50. Risk Values: Samara 5 year model risk: 0.8%. NCI Lifetime model risk: 7.4%. Prior Study Comparison: No prior studies available for comparison. Tissue Density: The breasts are extremely dense, which lowers the sensitivity of mammography. Findings: Analyzed By CAD. No significant mass, suspicious microcalcification, or other discrete abnormality is seen. Minimal benign vascular calcifications noted. Overall Assessment: Benign, BI-RAD 2 Management: Screening Mammogram of both breasts in 1 year. Given the patient's extremely dense breast tissue, consideration can be given to supplementary screening with breast ultrasound. Patient should continue monthly self-breast exams. A clinical breast exam by your physician is recommended on an annual basis. This exam should not preclude additional follow-up of suspicious palpable abnormalities. Note on Samara scores and lifetime risk: 1. A Samara score greater than 3% is considered moderate risk. If this is the case, consider specialist referral to assess eligibility for a risk reducing agent. 2. If overall lifetime risk for the development of breast cancer is 20% or higher, the patient may qualify for future screening with alternating mammogram and breast MRI. [facility], , 06/26/2024 4:13 PM. Electronically signed and approved by: Connie Cardenas M.D. Radiologist
== END | disposition home or self-care (01) ==
LOC: RADMAMWWP 07:18
PROVIDERS: ATTEND Obstetrics & Gynecology
DX: Z12.31 Encounter for screening mammogram for malignant neoplasm of breast (principal); R92.343 Mammographic extreme density, bilateral breasts; C54.1 Malignant neoplasm of endometrium; Z78.0 Asymptomatic menopausal state; Z90.722 Acquired absence of ovaries, bilateral
CPT/HCPCS: 77063; 77067

== ENCOUNTER → 2025-01-13 | Outpatient (CLI) | payer BC ==
--- NOTE | 2025-01-13 09:57 | US ---
EXAMINATION TYPE: US thyroid st tissue head/neck DATE OF EXAM: 01/13/2025 COMPARISON: NONE CLINICAL INDICATION: Female, 49 years old with history of E04.1 NONTOXIC SINGLE THYROID NODULE; thyro id nodule TECHNIQUE: Grayscale and color Doppler imaging of the thyroid gland. FINDINGS: GLAND SIZE: Right Lobe: 5.1 x 2.0 x 2.1 cm Overall Parenchyma: heterogeneous Left Lobe: 4.5 x 1.8 x 1.6 cm Overall Parenchyma: heterogeneous Isthmus Thickness: 0.3 cm NODULES RIGHT: # of nodules measured on right: 1 1. 0.5 X 0.6 x 0.5 cm, mid mid, cystic or almost completely cystic, anechoic nodule, which is wider than tall, with lobulated or irregular margins, with echogenic foci. LEFT: # of nodules measured on left: 0 ISTHMUS: # of nodules measured in the isthmus: 0 Bilateral neck scanned, no evidence of lymphadenopathy. IMPRESSION: Borderline thyromegaly. A benign 6 mm right mid pole colloid cyst noted. No suspicious nodule seen. [facility], , 01/13/2025 9:54 AM
[2025-01-13 15:41] LABS: T4, Free (Free Thyroxine) 1.37 ng/dL (0.80-1.80)
== END | disposition home or self-care (01) ==
LOC: RADUSWWP 09:10
PROVIDERS: ATTEND Family Medicine
DX: E04.1 Nontoxic single thyroid nodule (principal)
CPT/HCPCS: 76536; 84439; 84443